=== PATIENT | female | born 1965 | race Caucasian/White ===

== ENCOUNTER → 2017-07-21 | Outpatient (CLI) | payer BC ==
[~2017-07-21] MED LIST: PRISTIQ50 MG; [UNRECOGNIZED DRUG - REMARK]
== END ==
LOC: MC.RAD 13:17
DX: Z12.31 Encounter for screening mammogram for malignant neoplasm of breast (principal)

== ENCOUNTER → 2019-08-26 | Outpatient (CLI) | payer BC | LOC: MC.RAD 07:00 | DX: Z12.31 Encounter for screening mammogram for malignant neoplasm of breast (principal); N64.89 Other specified disorders of breast ==

== ENCOUNTER → 2019-08-30 | Outpatient (CLI) | payer BC | LOC: MC.RAD 07:30 | DX: N60.01 Solitary cyst of right breast (principal); V89.2XXD Person injured in unspecified motor-vehicle accident, traffic, subsequent encounter; S20.01XD Contusion of right breast, subsequent encounter | CPT/HCPCS: G0279 ==

== ENCOUNTER → 2020-01-20 | Outpatient (CLI) | payer BC | LOC: MC.RAD 07:23 | DX: N60.01 Solitary cyst of right breast (principal) | CPT/HCPCS: G0279 ==

== ENCOUNTER → 2020-09-02 | Outpatient (CLI) | payer BC | LOC: MC.RAD 13:16 | DX: Z12.31 Encounter for screening mammogram for malignant neoplasm of breast (principal); N63.21 Unspecified lump in the left breast, upper outer quadrant ==

== ENCOUNTER → 2020-09-04 | Outpatient (CLI) | payer BC | LOC: MC.RAD 10:46 | DX: N60.12 Diffuse cystic mastopathy of left breast (principal) ==

== ENCOUNTER → 2021-10-01 | Outpatient (CLI) | payer BC | LOC: MC.RAD 09:28 | DX: Z12.31 Encounter for screening mammogram for malignant neoplasm of breast (principal) ==